=== PATIENT | male | born 1960 | race Caucasian/White ===

== ENCOUNTER 2018-01-31 11:08 | Day surgery (SDC) | payer BC ==
[2018-01-31] MEDS: NS 1,000 ML IV (11:15)
[2018-01-31] MEDS ORDERED: PROPOFOL 200 MG/20 ML VIAL As Ordered (13:46)
[2018-01-31] MEDS ORDERED: LIDOCAINE 2% INJ 100 MG/5 ML SDV (FOR ANES.) As Ordered (13:46)
[2018-01-31] MEDS ORDERED: fentaNYL 100 MCG/2 ML INJECTION (J3010) As Ordered (14:08)
== END 2018-01-31 14:49 | disposition home or self-care (01) ==
LOC: M OPP 11:08
DX: Z12.11 Encounter for screening for malignant neoplasm of colon (principal); Z86.010 Personal history of colon polyps; D12.5 Benign neoplasm of sigmoid colon; K57.30 Diverticulosis of large intestine without perforation or abscess without bleeding; K64.8 Other hemorrhoids; K22.70 Barrett's esophagus without dysplasia; K22.8 Other specified diseases of esophagus; I10 Essential (primary) hypertension; Z87.442 Personal history of urinary calculi; K21.9 Gastro-esophageal reflux disease without esophagitis; K13.21 Leukoplakia of oral mucosa, including tongue; Z88.8 Allergy status to other drugs, medicaments and biological substances; Z79.899 Other long term (current) drug therapy; Z80.52 Family history of malignant neoplasm of bladder
CPT/HCPCS: 45385

== ENCOUNTER → 2019-05-21 | Outpatient (REF) | payer BC ==
[~2019-05-21] MED LIST: BISO5TAB2 PO; DOXY100C PO; LOTR52CA PO; OMEP40CA97 PO
== END ==
LOC: M LAB REF 19:02
PROVIDERS: ATTEND Dermatology
DX: D48.9 Neoplasm of uncertain behavior, unspecified (principal)

== ENCOUNTER → 2022-08-02 | Outpatient (CLI) | payer BC ==
[~2022-08-02] MED LIST changes: +BISO1TAB18 PO; -BISO5TAB2 PO; +CHLO125TA PO; -DOXY100C PO; +DOXY100C3 PO; +ELIQ5TAB PO; +OMEP40CA4 PO; -OMEP40CA97 PO
== END ==
LOC: M LABSMTC 11:17
PROVIDERS: ATTEND Anesthesiology
DX: Z01.818 Encounter for other preprocedural examination (principal)

== ENCOUNTER → 2022-09-26 | Outpatient (CLI) | payer BC | LOC: M LABSMTC 08:50 | PROVIDERS: ATTEND Anesthesiology | DX: Z01.818 Encounter for other preprocedural examination (principal); Z11.52 Encounter for screening for COVID-19 ==

== ENCOUNTER 2022-10-01 08:19 | Day surgery (SDC) | payer BC ==
[~2022-10-01] VITALS: Ht 182.9 cm; Wt 133.7 kg
[~2022-10-01 08:19] MED LIST changes: +NS 1,000 ML IV ONE
[2022-10-01] MEDS ORDERED: propofoL 500 MG/50 ML VIAL As Ordered ONE (08:41)
[2022-10-01] MEDS ORDERED: LIDOCAINE 2% 100MG/5ML SDV (FOR ANES.) As Ordered ONE (08:41)
[2022-10-01] MEDS ORDERED: fentaNYL 100 MCG/2 ML INJECTION As Ordered ONE (08:41)
[2022-10-01] MEDS ORDERED: propofoL 200 MG/20 ML VIAL As Ordered ONE (10:14)
[2022-10-01 10:38] VITALS: BP 141/78
== END 2022-10-01 10:52 | disposition home or self-care (01) ==
LOC: M OPP 08:19
PROVIDERS: ATTEND Internal Medicine Gastroenterology
DX: Z86.010 Personal history of colon polyps (principal); K63.5 Polyp of colon; K57.30 Diverticulosis of large intestine without perforation or abscess without bleeding; K64.8 Other hemorrhoids; K22.70 Barrett's esophagus without dysplasia; Z79.01 Long term (current) use of anticoagulants; Z79.891 Long term (current) use of opiate analgesic; Z79.899 Other long term (current) drug therapy; Z88.8 Allergy status to other drugs, medicaments and biological substances; Z86.16 Personal history of COVID-19; Z87.442 Personal history of urinary calculi
CPT/HCPCS: 43239; 45385; 88305; J3010

== ENCOUNTER → 2022-12-04 | Outpatient (CLI) | payer BC ==
[~2022-12-04] MED LIST changes: -NS 1,000 ML IV ONE
[2022-12-04 15:33] LABS: BASO % 0.3 % (0.0-1.0); EOS # 0.1 10^3/uL (0.0-0.5); EOS % 1.2 % (0.0-3.0); HEMATOCRIT 46.8 % (42.0-52.0); HEMOGLOBIN 16.4 g/dl (13.5-17.5); LYMPH # 2.3 10^3/uL (1.5-5.0); LYMPH % 24.5 % (24.0-44.0); MEAN CORPUSCULAR HEMOGLOBIN 32.7 pg (27.0-33.0); MEAN CORPUSCULAR VOLUME 93.2 fl (80.0-96.0); MONO # 0.7 10^3/uL (0.0-0.8); MONO % 7.4 % (2.0-8.0); NEUTROPHILS # 6.3 10^3/uL (1.5-8.5); NEUTROPHILS % 65.9 % (36.0-66.0); PLATELET COUNT, AUTOMATED 308 10^3/uL (150-450); RED BLOOD COUNT 5.02 10^6/uL (4.30-6.10); RHEUMATOID FACTOR QUANT 15.6 IU/ML (<14); WHITE BLOOD COUNT 9.5 10^3/uL (4.0-10.0)
[2022-12-04 15:36] LABS: URIC ACID 7.7 MG/DL (3.7-9.2)
[2022-12-06 16:09] LABS: ANTINUCLEAR ANTIBODIES DIRECT Negative (Negative)
== END ==
LOC: M PLALAB 11:41
PROVIDERS: ATTEND Orthopaedic Surgery
DX: M16.11 Unilateral primary osteoarthritis, right hip (principal)

== ENCOUNTER → 2023-09-25 | Outpatient (REF) | payer BC | LOC: M LAB REF 16:08 | PROVIDERS: ATTEND Family Medicine | DX: R53.83 Other fatigue (principal); I48.21 Permanent atrial fibrillation ==

== ENCOUNTER → 2024-01-14 | Outpatient (REF) | payer BC | LOC: M LAB REF 16:55 | PROVIDERS: ATTEND Family Medicine | DX: I48.21 Permanent atrial fibrillation (principal); R74.01 Elevation of levels of liver transaminase levels ==